=== PATIENT | female | born 1960 | race Caucasian/White ===

== ENCOUNTER 2017-10-19 09:31 | Emergency (ER) | payer BC ==
[~2017-10-19] VITALS: Ht 165.1 cm; Wt 128.1 kg
[2017-10-19 10:18] LABS: BASO % 0 % (0-3); EOS # 0.1 x10^3/uL (0.0-0.7); EOS % 1 % (0-3); HEMATOCRIT 38.9 % (36.0-47.0); LYMPH # 1.1 x10^3/uL (1.0-4.8); LYMPH % 22 % (24-48); MEAN CORPUSCULAR HEMOGLOBIN 28 pg (25-35); MEAN CORPUSCULAR HGB CONC 34 g/dL (31-37); MEAN CORPUSCULAR VOLUME 84 fL (79-100); MONO # 0.4 x10^3/uL (0.0-1.1); MONO % 8 % (0-9); NEUT # 3.5 x10^3uL (1.8-7.7); NEUT % 69 % (31-73); PLATELET COUNT 177 x10^3/uL (140-400); RED BLOOD COUNT 4.64 x10^6/uL (3.50-5.40); RED CELL DISTRIBUTION WIDTH 14.3 % (11.5-14.5); WHITE BLOOD COUNT 5.1 x10^3/uL (4.0-11.0)
[2017-10-19 10:24] LABS: BILIRUBIN,URINE NEG (NEG); CLARITY,URINE CLEAR; COLOR,URINE YELLOW; GLUCOSE,URINE NEG (NEG)
[2017-10-19 10:25] LABS: BACTERIA,URINE 0 /HPF (0-FEW); NITRITE,URINE NEG (NEG); RBC,URINE 0 /HPF (0-2); SQUAMOUS EPITHELIAL CELL,UR FEW /LPF; UROBILINOGEN,URINE 0.2 mg/dL (0.2 mg/dL); WBC,URINE 0 /HPF (0-4)
--- NOTE | 2017-10-19 10:38 | PHYS DOC ---
Past History Past Medical History: Arthritis, Depression Past Surgical History: Other Smoking: Less than 1pk/day Alcohol Use: Occasionally Drug Use: None Adult General Chief Complaint Chief Complaint: CHEST PAIN [facility] HPI 57-year-old female patient brought in by EMS because of chest pain. Patient complaining of intermittent episodes of substernal aching and sharp pain for the last 3 days that usually happens with movement and last about 10 minutes and repeated several times a day. Patient denies shortness of breath, palpitation, dizziness. Patient complaining of some episodes of nausea and subjective fever. Patient states she has had sneezing and runny nose for the last 3 days. Patient rated her pain 3- 4 and denies any pain at arrival to ER. Patient had 324 mg of Aspirin given by EMS. Patient denies history of chest pain. Patient does not have hypertension, dyspnea, diabetes, family history of coronary artery disease. Patient currently smoking less than a pack a day. Review of Systems Review of Systems Constitutional: Denies fever or chills [] Eyes: Denies change in visual acuity, redness, or eye pain [] HENT: Reports nasal congestion, denies sore throat [] Respiratory: Denies cough or shortness of breath [] Cardiovascular: No additional information not addressed in HPI [] GI: Denies abdominal pain, nausea, vomiting, bloody stools or diarrhea [] : Denies dysuria or hematuria [] Musculoskeletal: Denies back pain or joint pain [] Integument: Denies rash or skin lesions [] Neurologic: Denies headache, focal weakness or sensory changes [] Endocrine: Denies polyuria or polydipsia [] All other systems were reviewed and found to be within normal limits, except as documented in this note. Allergies Allergies Allergies Coded Allergies Type Severity Reaction Last Updated Verified No Known Drug Allergies 03/17/14 No Physical Exam Physical Exam Constitutional: Well nourished, no acute distress, non-toxic appearance, anxious. [] HENT: Normocephalic, atraumatic, bilateral external ears normal, oropharynx moist, no oral exudates, nose normal. [] Eyes: PERRLA, EOMI, conjunctiva normal, no discharge. [] Neck: Normal range of motion, no tenderness, supple, no stridor. [] Cardiovascular:Heart rate regular rhythm, no murmur [] Lungs & Thorax: Bilateral breath sounds clear to auscultation, reproducible substernal chest pain Abdomen: Bowel sounds normal, soft, no tenderness, no masses, no pulsatile masses. [] Skin: Warm, dry, no erythema, no rash. [] Back: No tenderness, no CVA tenderness. [] Extremities: No tenderness, no cyanosis, no clubbing, ROM intact, no edema. [] Neurologic: Alert and oriented X 3, normal motor function, normal sensory function, no focal deficits noted. [] Psychologic: Affect normal, judgement normal, anxious EKG EKG [EKG interpreted by me. EKG at 0938 showed normal sinus rhythm at rate of 60, no ST and T-wave abnormality, SD and QT interval normal] Radiology/Procedures Radiology/Procedures Chest x-ray was unremarkable[] Course & Med Decision Making Course & Med Decision Making Pertinent Labs and Imaging studies reviewed. (See chart for details) Evaluation of patient in ER showed 57-year-old female patient with complaining of intermittent episodes of substernal chest pain for the last 3 days with movement and sneezing and cough. Patient had unremarkable physical exam except for chest reproducible pain. X-ray, EKG, labs was unremarkable. Patient was chest pain-free function was in ER. Plan discharge patient home with diagnosis of musculoskeletal chest pain. Patient instructed to quit smoking. [] Dragon Disclaimer Dragon Disclaimer This electronic medical record was generated, in whole or in part, using a voice recognition dictation system. Departure Departure: Impression: Primary Impression: Musculoskeletal chest pain Additional Impressions: Tobacco abuse Tobacco abuse counseling Disposition: HOME, SELF-CARE (At 1135) Condition: STABLE Referrals: NICK ADRIAN MD (PCP) Patient Instructions: Musculoskeletal Pain Additional Instructions: Apply ice on the affected area Follow-up with your primary care physician in 2 or 3 days if not getting better Quit smoking Scripts Naproxen (NAPROSYN) 500 Mg Tablet 1 TAB PO BID, #14 TAB 1 Refill Prov: HARRIS LUA MD 10/19/17 Problem Qualifiers HARRIS LUA MD Oct 19, 2017 10:38
[2017-10-19 10:43] LABS: ALBUMIN 3.5 g/dL (3.4-5.0); ALBUMIN/GLOBULIN RATIO 0.9 (1.0-1.7); CREATININE 0.7 mg/dL (0.6-1.0); GFR 86.2; MAGNESIUM 2.1 mg/dL (1.8-2.4); POTASSIUM 3.9 mmol/L (3.5-5.1); TOTAL BILIRUBIN 0.4 mg/dL (0.2-1.0); TOTAL PROTEIN 7.4 g/dL (6.4-8.2)
--- NOTE | 2017-10-19 10:45 | RAD ---
PA and lateral chest radiographs 10/19/2017 Clinical history: Chest pain. PA and lateral digital radiographs of the chest were obtained. Comparison study is dated 05/02/2013. The cardiac silhouette is normal in size. The thoracic aorta is mildly tortuous. No acute pulmonary infiltrate is seen. No pleural effusion or pneumothorax is seen. Degenerative changes are seen involving the thoracic spine. Impression: No acute pulmonary infiltrate is seen.
[2017-10-19] MEDS ORDERED: NAPR-683 PO (11:37)
--- NOTE | 2017-10-19 12:12 | EKG ---
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
[2017-10-19 12:15] VITALS: BP 129/80
== END 2017-10-19 12:15 | disposition home or self-care (01) ==
LOC: ER 09:31
DX: R07.89 Other chest pain (principal); R50.9 Fever, unspecified; F17.200 Nicotine dependence, unspecified, uncomplicated
CPT/HCPCS: 36415; 71020; 80053; 81001; 82553; 83735; 83880; 84484; 85025; 85610; 93005; 99285-25

== ENCOUNTER 2018-04-12 18:53 | Emergency (ER) | payer SELFPAY ==
[~2018-04-12] VITALS: Ht 165.1 cm; Wt 127.0 kg
[~2018-04-12 18:53] MED LIST: NAPR-683 PO
--- NOTE | 2018-04-12 18:55 | ED.ADGEN ---
Past History Past Medical History: Arthritis, Asthma, Depression Past Surgical History: No Surgical History Smoking: Less than 1pk/day Alcohol Use: Occasionally Drug Use: None Adult General Chief Complaint Chief Complaint ".. I have a bad headache... I took 600 ibuprofen... I ve had it now for over 15 minutes..." HPI HPI Patient is a 58 year old female resident of [facility], who presents with above hx and complaints of headache. Patient likely has headaches. Use ear control of Tylenol or ibuprofen. Patient states this headache felt worse than previous headaches. No history of trauma. No history of travel. No history of immunosuppression. Patient lives in assisted living. Patient normally follows with Dr. Ochoa. Poorly up-to-date with vaccinations. DTRs +2 patella and brachial. Patient is ambulatory as somewhat shuffled gait. Patient is morbidly obese and needs assistance in getting in and out of bed. Patient does lisp with speech, but this is normal for her. Brother at bed side states her current mentation and presentation is at her baseline. Patient does smoke approximately 1 pack per day. Review of Systems Review of Systems Constitutional: Denies fever or chills [] Eyes: Denies change in visual acuity, redness, or eye pain [] HENT: Denies nasal congestion or sore throat [] Respiratory: Denies cough or shortness of breath [] Cardiovascular: No additional information not addressed in HPI [] GI: Denies abdominal pain, nausea, vomiting, bloody stools or diarrhea [] : Denies dysuria or hematuria [] Musculoskeletal: Denies back pain or joint pain [] Integument: Denies rash or skin lesions [] Neurologic: Complains headache. Denies, focal weakness or sensory changes [] Endocrine: Denies polyuria or polydipsia [] All other systems were reviewed and found to be within normal limits, except as documented in this note. Family History Family History Noncontributory Current Medications Current Medications Current Medications Medications (Trade) Dose Ordered Sig/Alexander Start Time Stop Time Status Last Admin Dose Admin Acetaminophen (Tylenol) 1,000 mg 1X ONCE 04/12/18 19:00 04/12/18 19:04 DC Diphenhydramine HCl (Benadryl) 50 mg 1X ONCE 04/12/18 19:00 04/12/18 19:04 DC Ketorolac Tromethamine (Toradol) 60 mg 1X ONCE 04/12/18 21:45 04/12/18 21:46 DC 04/12/18 23:32 60 MG Promethazine HCl (Phenergan Im) 25 mg 1X ONCE 04/12/18 19:00 04/12/18 19:04 DC Sumatriptan Succinate (Imitrex) 6 mg 1X ONCE 04/12/18 21:15 04/12/18 21:20 DC 04/12/18 23:33 6 MG Allergies Allergies Allergies Coded Allergies Type Severity Reaction Last Updated Verified No Known Drug Allergies 03/17/14 No Physical Exam Physical Exam Constitutional: no acute distress, non-toxic appearance. [] HENT: Normocephalic, atraumatic, bilateral external ears normal, oropharynx moist, no oral exudates, nose normal. [] Eyes: PERRLA, EOMI, conjunctiva normal, no discharge. [] Neck: Normal range of motion, no tenderness, supple, no stridor. [] Cardiovascular:Heart rate regular rhythm, no murmur [] Lungs & Thorax: Bilateral breath sounds clear to auscultation [] Abdomen: Bowel sounds normal, soft, no tenderness, no masses, no pulsatile masses. [] Morbidly obese Skin: Warm, dry, no erythema, no rash. [] Back: No tenderness, no CVA tenderness. [] Extremities: No tenderness, no cyanosis, no clubbing, ROM intact, ankle edema. [ ] Neurologic: Alert and oriented X 3, normal motor function, normal sensory function, no focal deficits noted. []DTRs +2 patella and brachial. Enterer equal. No drift but does have giveaway weakness. Patient is right-hand dominant. Distal vibratory 128 intact. Psychologic: Affect anxious, judgement appears to have limited insight, mood normal. [] Current Patient Data Lab Results Laboratory Tests Test 04/12/18 19:10 04/12/18 20:18 Urine Collection Type Unknown Urine Color Yellow Urine Clarity Hazy Urine pH 7.0 Urine Specific Byron 1.020 Urine Protein Neg (NEG-TRACE) Urine Glucose (UA) Neg mg/dL (NEG) Urine Ketones (Stick) Trace mg/dL (NEG) Urine Blood Neg (NEG) Urine Nitrite Neg (NEG) Urine Bilirubin Neg (NEG) Urine Urobilinogen Dipstick 0.2 mg/dL (0.2 mg/dL) Urine Leukocyte Esterase Neg (NEG) Urine RBC 1-2 /HPF (0-2) Urine WBC 1-4 /HPF (0-4) Urine Squamous Epithelial Cells Many /LPF Urine Bacteria Few /HPF (0-FEW) Urine Opiates Screen Neg (NEG) Urine Methadone Screen Neg (NEG) Urine Barbiturates Neg (NEG) Urine Phencyclidine Screen Neg (NEG) Urine Amphetamine/Methamphetamine Neg (NEG) Urine Benzodiazepines Screen Neg (NEG) Urine Cocaine Screen Neg (NEG) Urine Cannabinoids Screen Neg (NEG) Urine Ethyl Alcohol Neg (NEG) White Blood Count 4.6 x10^3/uL (4.0-11.0) Red Blood Count 4.56 x10^6/uL (3.50-5.40) Hemoglobin 12.8 g/dL (12.0-15.5) Hematocrit 38.6 % (36.0-47.0) Mean Corpuscular Volume 85 fL (79-100) Mean Corpuscular Hemoglobin 28 pg (25-35) Mean Corpuscular Hemoglobin Concent 33 g/dL (31-37) Red Cell Distribution Width 14.3 % (11.5-14.5) Platelet Count 186 x10^3/uL (140-400) Neutrophils (%) (Auto) 57 % (31-73) Lymphocytes (%) (Auto) 32 % (24-48) Monocytes (%) (Auto) 7 % (0-9) Eosinophils (%) (Auto) 3 % (0-3) Basophils (%) (Auto) 1 % (0-3) Neutrophils # (Auto) 2.6 x10^3uL (1.8-7.7) Lymphocytes # (Auto) 1.5 x10^3/uL (1.0-4.8) Monocytes # (Auto) 0.3 x10^3/uL (0.0-1.1) Eosinophils # (Auto) 0.1 x10^3/uL (0.0-0.7) Basophils # (Auto) 0.0 x10^3/uL (0.0-0.2) Prothrombin Time 9.7 SEC (9.4-11.4) Prothrombin Time INR 0.9 (0.9-1.1) PTT 34 SEC (23-33) H Sodium Level 140 mmol/L (136-145) Potassium Level 3.9 mmol/L (3.5-5.1) Chloride Level 104 mmol/L (98-107) Carbon Dioxide Level 30 mmol/L (21-32) Anion Gap 6 (6-14) Blood Urea Nitrogen 19 mg/dL (7-20) Creatinine 0.8 mg/dL (0.6-1.0) Estimated GFR (Cockcroft-Gault) 73.7 Glucose Level 93 mg/dL (70-99) Calcium Level 8.6 mg/dL (8.5-10.1) Magnesium Level 2.0 mg/dL (1.8-2.4) Troponin I Quantitative < 0.017 ng/mL (0-0.055) EKG EKG My interpretation EKG shows a sinus rhythm at 70 bpm. With no acute morphology.[ ] Radiology/Procedures Radiology/Procedures My interpretation CT of head shows no shift, mass, edema, bleed, or fracture. Does have increased generalized atrophy[] Course & Med Decision Making Course & Med Decision Making Pertinent Labs and Imaging studies reviewed. (See chart for details) Patient declines spinal tap. Does exhibit UCAR capacity. Patient encouraged follow-up with Dr. Sanon. Patient encourage return if any concerns. Patient take Tylenol and ibuprofen for discomfort. Consider follow -up with neurology persistent recurrent migraine type headaches. [] Final Impression Final Impression 1. Headache[]- Migraine 2. Morbid obesity 3. Tobacco Abuse Dragon Disclaimer Dragon Disclaimer This electronic medical record was generated, in whole or in part, using a voice recognition dictation system. LOU MARIE MD Apr 12, 2018 18:55
[2018-04-12] MEDS ORDERED: diphenhydrAMINE 50 MG/ML VIAL IM ONE (19:00)
[2018-04-12] MEDS ORDERED: PROMETHAZINE IM 25 MG/ML VIAL IM ONE (19:00)
[2018-04-12] MEDS ORDERED: ACETAMINOPHEN 500 MG TABLET PO ONE (19:00)
--- NOTE | 2018-04-12 19:15 | EKG ---
[address] [address] Test Date: 2018-04-12 Test Time: 19:09:49 Pat Name: DEYANIRA COOLEY Department: Room: Gender: F [employer]: MILDRED : 1960 Requested By: LOU MARIE Order Number: [id number] Reading MD: Carlos Siddiqi Measurements Intervals [place] Rate: 70 P: 0 [place]: 170 QRS: 24 QRSD: 92 T: 59 QT: 412 QTc: 448 Interpretive Statements SINUS ARRHYTHMIA NO SPECIFIC ECG ABNORMALITIES Electronically Signed On 04-19-2018 12:46:40 CDT by Carlos Siddiqi
--- NOTE | 2018-04-12 19:54 | RAD ---
Indication: Severe headache Technique: Noncontrast CT head was obtained. Comparison is from November 17, 2011. One or more of the following individualized dose reduction techniques were utilized for this examination: 1. Automated exposure control 2. Adjustment of the mA and/or kV according to patient size 3. Use of iterative reconstruction technique Findings: Mild symmetric prominence of the ventricles and sulci is within normal limits for age. There is no acute intracranial hemorrhage or extra-axial fluid collection. There is no mass effect or midline shift. Del Cid-white differentiation is preserved. There is no depressed skull fracture. The included paranasal sinuses and mastoid air cells are clear. IMPRESSION: 1. No acute intracranial findings. 2. Brain parenchymal volume loss. Electronically signed by: William Vargas MD (04/12/2018 7:50 PM) [facility]
[2018-04-12 20:18] LABS: AMPHETAMINE/METHAMPHETAMINE NEG (NEG); BARBITURATES NEG (NEG); BENZODIAZEPINES NEG (NEG); CANNABINOIDS NEG (NEG); COCAINE NEG (NEG); METHADONE NEG (NEG); OPIATES NEG (NEG); PHENCYCLIDINE NEG (NEG)
[2018-04-12 20:32] LABS: BILIRUBIN,URINE NEG (NEG); CLARITY,URINE HAZY; COLOR,URINE YELLOW; GLUCOSE,URINE NEG (NEG); NITRITE,URINE NEG (NEG); UROBILINOGEN,URINE 0.2 mg/dL (0.2 mg/dL)
[2018-04-12 20:33] LABS: BACTERIA,URINE FEW /HPF (0-FEW); SQUAMOUS EPITHELIAL CELL,UR MANY /LPF
[2018-04-12 20:45] LABS: BASO % 1 % (0-3); EOS # 0.1 x10^3/uL (0.0-0.7); EOS % 3 % (0-3); HEMATOCRIT 38.6 % (36.0-47.0); HEMOGLOBIN 12.8 g/dL (12.0-15.5); LYMPH # 1.5 x10^3/uL (1.0-4.8); LYMPH % 32 % (24-48); MEAN CORPUSCULAR HEMOGLOBIN 28 pg (25-35); MEAN CORPUSCULAR HGB CONC 33 g/dL (31-37); MEAN CORPUSCULAR VOLUME 85 fL (79-100); MONO # 0.3 x10^3/uL (0.0-1.1); MONO % 7 % (0-9); NEUT # 2.6 x10^3uL (1.8-7.7); NEUT % 57 % (31-73); PLATELET COUNT 186 x10^3/uL (140-400); RED BLOOD COUNT 4.56 x10^6/uL (3.50-5.40); RED CELL DISTRIBUTION WIDTH 14.3 % (11.5-14.5); WHITE BLOOD COUNT 4.6 x10^3/uL (4.0-11.0)
[2018-04-12 20:54] LABS: CALCIUM 8.6 mg/dL (8.5-10.1); CREATININE 0.8 mg/dL (0.6-1.0); GFR 73.7; POTASSIUM 3.9 mmol/L (3.5-5.1)
[2018-04-12] MEDS ORDERED: SUMAtriptan SUCC 6 MG/0.5 ML VIAL SQ ONE (21:15)
[2018-04-12] MEDS ORDERED: KETOROLAC 60 MG/2 ML VIAL. IM ONE (21:45)
--- NOTE | 2018-04-13 08:16 | RAD ---
PROCEDURE: PORTABLE CHEST 1V CLINICAL INDICATION: SHORTNESS OF BREATH COMPARISON: 10/19/2017 FINDINGS: No pneumothorax identified. Cardiac and mediastinal contours unremarkable. No pulmonary consolidation or acute airspace disease. No acute osseous abnormalities identified. IMPRESSION: No pulmonary consolidation or acute airspace disease. Electronically signed by: Gregg Ware DO (04/13/2018 8:13 AM) [facility]
[2018-04-14 04:58] VITALS: BP 133/78
== END 2018-04-12 23:50 | disposition home or self-care (01) ==
LOC: ER 18:53
DX: G43.909 Migraine, unspecified, not intractable, without status migrainosus (principal); E66.01 Morbid (severe) obesity due to excess calories; J45.909 Unspecified asthma, uncomplicated; M19.90 Unspecified osteoarthritis, unspecified site; F17.210 Nicotine dependence, cigarettes, uncomplicated; Z68.42 Body mass index [BMI] 45.0-49.9, adult
CPT/HCPCS: 36415; 70450; 71045; 80048; 80307; 81001; 83735; 84484; 85025; 85610; 85730; 93005; 96372; 99285; J1200; J1885; J2550; J3030; G0479

== ENCOUNTER 2018-06-09 14:00 | Emergency (ER) | payer SELFPAY ==
[~2018-06-09] VITALS: Ht 165.1 cm; Wt 136.1 kg
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
[2018-06-09 15:58] VITALS: BP 139/78
== END 2018-06-09 16:05 | disposition home or self-care (01) ==
LOC: ER 14:00
DX: S09.90XA Unspecified injury of head, initial encounter (principal); S20.211A Contusion of right front wall of thorax, initial encounter; M19.90 Unspecified osteoarthritis, unspecified site; F17.200 Nicotine dependence, unspecified, uncomplicated; V49.59XA Passenger injured in collision with other motor vehicles in traffic accident, initial encounter; Y93.89 Activity, other specified; Y92.488 Other paved roadways as the place of occurrence of the external cause; Y99.8 Other external cause status
CPT/HCPCS: 71101; 99284

== ENCOUNTER 2018-06-10 10:09 | Emergency (ER) | payer SELFPAY ==
[~2018-06-10] VITALS: Ht 165.1 cm; Wt 128.1 kg
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
[2018-06-10 12:57] VITALS: BP 130/71
== END 2018-06-10 12:57 | disposition home or self-care (01) ==
LOC: ER 10:09
DX: R20.0 Anesthesia of skin (principal); J45.909 Unspecified asthma, uncomplicated; M19.90 Unspecified osteoarthritis, unspecified site; F17.200 Nicotine dependence, unspecified, uncomplicated; V89.2XXD Person injured in unspecified motor-vehicle accident, traffic, subsequent encounter
CPT/HCPCS: 73130; 99284

== ENCOUNTER → 2018-06-25 | Outpatient (CLI) | payer OTHER ==
[2018-06-10 12:57] VITALS: BP 130/71
--- NOTE | 2018-06-28 08:49 | RAD ---
DATE: 06/25/2018 EXAM: DIGITAL SCREEN BILAT W/CAD HISTORY: Routine screening COMPARISON: None available This study was interpreted with the benefit of Computerized Aided Detection (CAD). The breast parenchyma shows scattered fibroglandular densities. Breast parenchyma level B. FINDINGS: There are benign-appearing lymph node type densities projected over the posterolateral aspects of both breasts. There is additional less well-defined opacity in the posterolateral aspect of the left breast with several associated microcalcifications. There are couple of other scattered benign type calcifications in both breasts. IMPRESSION: Small left lateral breast nodule with microcalcifications. Diagnostic mammography to include spot compression CC, straight mediolateral and probably tomosynthesis imaging is suggested, probably followed by left breast ultrasound. BI-RADS CATEGORY: 0 INCOMPLETE: NEEDS ADDITIONAL IMAGING EVALUATION AND/OR PRIOR MAMMOGRAMS FOR COMPARISON. RECOMMENDED FOLLOW-UP: ADD ADDITIONAL IMAGING PQRS compliance statement: Patient information was entered into a reminder system with a target due date for the next mammogram. Mammography is a sensitive method for finding small breast cancers, but it does not detect them all and is not a substitute for careful clinical examination. A negative mammogram does not negate a clinically suspicious finding and should not result in delay in biopsying a clinically suspicious abnormality. "Our facility is accredited by the [employer] Mammography [employer]."
== END | disposition home or self-care (01) ==
LOC: MAMMO 14:58
DX: Z12.31 Encounter for screening mammogram for malignant neoplasm of breast (principal); J45.909 Unspecified asthma, uncomplicated; G43.909 Migraine, unspecified, not intractable, without status migrainosus
CPT/HCPCS: 77067

== ENCOUNTER 2018-07-13 09:26 | Emergency (ER) | payer SELFPAY ==
[~2018-07-13] VITALS: Ht 165.1 cm; Wt 128.1 kg
[2018-07-13] MEDS ORDERED: PRED20TA PO (10:16)
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
[2018-07-13] MEDS ORDERED: DEXAMETHASONE SOD PHOS 10 MG/ML VIAL IV ONE (10:30)
[2018-07-13 10:40] VITALS: BP 138/77
[2018-07-13] MEDS ORDERED: DEXAMETHASONE SOD PHOS 10 MG/ML VIAL IM ONE (10:45)
== END 2018-07-13 10:40 | disposition home or self-care (01) ==
LOC: ER 09:26
DX: G56.91 Unspecified mononeuropathy of right upper limb (principal); M19.90 Unspecified osteoarthritis, unspecified site; J45.909 Unspecified asthma, uncomplicated; F17.200 Nicotine dependence, unspecified, uncomplicated
CPT/HCPCS: 96372; 99283; J1100

== ENCOUNTER 2018-09-07 07:44 | Emergency (ER) | payer SELFPAY ==
[~2018-09-07] VITALS: Ht 165.1 cm; Wt 136.5 kg
[~2018-09-07 07:44] MED LIST changes: +PRED20TA PO
[2018-09-07] MEDS ORDERED: DIPHTH,PERTUSS(ACELL),TET TOX 0.5 ML DISP.SYRIN. VAX IM ONE (08:00)
[2018-09-07 08:20] LABS: HEMATOCRIT 39.2 % (36.0-47.0); HEMOGLOBIN 12.9 g/dL (12.0-15.5); RED BLOOD COUNT 4.61 x10^6/uL (3.50-5.40); RED CELL DISTRIBUTION WIDTH 13.9 % (11.5-14.5); WHITE BLOOD COUNT 3.9 x10^3/uL (4.0-11.0)
[2018-09-07 08:34] LABS: ALBUMIN 3.2 g/dL (3.4-5.0); ALBUMIN/GLOBULIN RATIO 0.9 (1.0-1.7); CALCIUM 8.5 mg/dL (8.5-10.1); CREATININE 0.7 mg/dL (0.6-1.0); GFR 85.9; POTASSIUM 3.8 mmol/L (3.5-5.1); TOTAL BILIRUBIN 0.4 mg/dL (0.2-1.0); TOTAL PROTEIN 6.7 g/dL (6.4-8.2)
[2018-09-07] MEDS ORDERED: IOHEXOL 300 MG/ML 75 ML VIAL. IV ONE (08:45)
--- NOTE | 2018-09-07 09:22 | RAD ---
CT scan of the head without contrast 09/07/2018 Clinical History: Fall striking head on curb this morning. Technique: Unenhanced, contiguous, 5 mm axial sections were obtained through the head. One or more of the following individualized dose reduction techniques were utilized for this study: 1. Automated exposure control. 2. Adjustment of the mA and/or kV according to patient size. 3. Use of iterative reconstruction technique. Findings: Comparison study is dated 04/12/2018. There is mild generalized parenchymal atrophy. No acute parenchymal abnormality is seen. No extra-axial fluid collection is noted. No skull fracture is seen. Soft tissue swelling is seen involving the left frontal scalp. Impression: No acute intracranial abnormality is seen. CT scan of the cervical spine without contrast 09/07/2018 Clinical history: Fall with neck injury. Technique: Unenhanced, contiguous, 0.625 mm axial sections were obtained through the cervical spine. Axial, coronal and sagittal reconstructed images were obtained. One or more of the following individualized dose reduction techniques were utilized for this study: 1. Automated exposure control. 2. Adjustment of the mA and/or kV according to patient size. 3. Use of iterative reconstruction technique. Findings: Sagittal and coronal reconstructed images demonstrate mild lateral curvature of the cervical spine, convex to the left. There is straightening of the normal cervical lordosis. Degenerative changes consisting of disc space narrowing, vertebral endplate sclerosis and minimal to mild anterior and posterior vertebral body osteophyte formation are seen at the C5-6 and C6-7 disc space is prominently. A nondisplaced defect is seen involving the right aspect of the posterior arch of C1 which is well-corticated and felt to most likely represent a congenital variation. No acute fracture or subluxation cervical vertebrae is seen. Degenerative changes are seen involving the uncovertebral and facet joints throughout the mid and lower cervical disc spaces. Impression: No acute fracture or subluxation of the cervical vertebra is identified. Electronically signed by: Eric Felix MD (09/07/2018 9:19 AM) [id number]
--- NOTE | 2018-09-07 09:47 | RAD ---
CT scan of the chest, abdomen and pelvis with contrast 09/07/2018 CLINICAL HISTORY: Patient fell onto pavement from curb striking her chest this morning with chest, abdominal and pelvic pain. TECHNIQUE: After the intravenous administration of 75 cc of Omnipaque 300, contiguous, 3 mm axial sections were obtained through the chest, abdomen and pelvis. One or more of the following individualized dose reduction techniques were utilized for this study: 1. Automated exposure control. 2. Adjustment of the mA and/or kV according to patient size. 3. Use of iterative reconstruction technique. FINDINGS: Comparison is made to a CT scan of the abdomen and pelvis dated 05/30/2013. No mediastinal hematoma is seen. The thoracic aorta is mildly tortuous but tapers normally. There is mild to moderate cardiomegaly. Dependent subsegmental atelectasis is seen involving both lungs. No acute pulmonary infiltrate is seen. No pleural effusion or pneumothorax is noted. The liver, spleen, pancreas, adrenal glands and right kidney are within normal limits. A 2 cm rounded low-attenuation lesion is seen involving the midpole of the left kidney which likely represents a cyst. The gallbladder is well-distended. Oval-shaped increased attenuation material is seen within the gallbladder which is felt to most likely represent sludge. The abdominal aorta tapers normally. Mild scattered atherosclerotic calcification abdominal aorta is seen. No free fluid or free air is within the abdomen. There is no evidence of bowel obstruction. The appendix is well-visualized and is within normal limits. Of the Images through the pelvis demonstrate the urinary bladder distended with urine. Calcifications are seen within the pelvis consistent with phleboliths. No free fluid is seen. No pelvic hematoma is noted. Scattered diverticula are seen involving the sigmoid colon. No inflammatory changes are seen in the adjacent fat. Mild S-shaped curvature of the thoracolumbar spine is seen. Degenerative changes are seen involving the thoracic and throughout the lumbar spine both hips. The osseous structures are grossly intact. IMPRESSION: No acute abnormality is seen. Electronically signed by: Eric Felix MD (09/07/2018 9:44 AM) [id number]
[2018-09-07] MEDS ORDERED: HYDR-971 PO (10:04)
[2018-09-07] MEDS ORDERED: IBUP800T19 PO (10:04)
--- NOTE | 2018-09-07 10:05 | PHYS DOC ---
Past History Past Medical History: Arthritis, Asthma, Other Past Surgical History: Smoking: Less than 1pk/day Alcohol Use: Rarely Drug Use: None Adult General Chief Complaint Chief Complaint: MECHANICAL FALL HPI HPI Patient is a 58 year old female who brought in by EMS because of a fall. Patient states she was walking outside and hit the curb and fell on concrete area. Patient denies loss of consciousness and complaining of pain in her face and right hand as a severe pain and rated her pain 8/10. She denies focal neuro deficit, nausea and vomiting, fever and chills, blurred lesion, chest pain. Patient is not up-to-date with tetanus immunization. Review of Systems Review of Systems Constitutional: Denies fever or chills [] Eyes: Denies change in visual acuity, redness, or eye pain [] HENT: Denies nasal congestion or sore throat [] Respiratory: Denies cough or shortness of breath [] Cardiovascular: No additional information not addressed in HPI [] GI: Reports abdominal pain, denies nausea, vomiting, bloody stools or diarrhea [ ] : Denies dysuria or hematuria [] Musculoskeletal: Denies back pain or joint pain [] Integument: Denies rash or skin lesions [] Neurologic: Reports headache, denies focal weakness or sensory changes [] Endocrine: Denies polyuria or polydipsia [] All other systems were reviewed and found to be within normal limits, except as documented in this note. Current Medications Current Medications Current Medications Medications (Trade) Dose Ordered Sig/[facility] Start Time Stop Time Status Last Admin Dose Admin Diphtheria/ Tetanus/[facility] Pertussis (Boostrix) 0.5 ml ONCE ONCE 09/07/18 08:00 09/07/18 08:23 DC 09/07/18 08:16 0.5 ML Fentanyl Citrate (Fentanyl 2ml Vial) 50 mcg 1X ONCE 09/07/18 08:45 09/07/18 08:46 DC 09/07/18 08:22 50 MCG Iohexol (Omnipaque 300 Mg/ml) 75 ml 1X ONCE 09/07/18 08:45 09/07/18 08:46 DC Allergies Allergies Allergies Coded Allergies Type Severity Reaction Last Updated Verified No Known Drug Allergies 03/17/14 No Physical Exam Physical Exam Constitutional: Well developed, well nourished, moderate distress, non-toxic appearance. [] HENT: Normocephalic, left frontal scalp contusion, bilateral external ears normal, oropharynx moist, no oral exudates, nose normal. [] Eyes: PERRLA, EOMI, conjunctiva normal, no discharge. [] Neck: Immobilized with c-collar at arrival to ER Cardiovascular:Heart rate regular rhythm, no murmur [] Lungs & Thorax: Bilateral breath sounds clear to auscultation [] Abdomen: 5 x 10 cm contusion in the left side of abdomen with tenderness, bowel sounds normal, soft, no masses, no pulsatile masses. [] Skin: Warm, dry, no erythema, no rash. [] Back: No tenderness, no CVA tenderness. [] Extremities: No tenderness, no cyanosis, no clubbing, ROM intact, right fourth finger abrasion, no edema. [] Neurologic: Alert and oriented X 3, normal motor function, normal sensory function, no focal deficits noted. [] Psychologic: Affect normal, judgement normal, mood normal. [] Current Patient Data Vital Signs Vital Signs Date Time Temp Pulse Resp B/P (MAP) Pulse Ox O2 Delivery O2 Flow Rate FiO2 09/07/18 08:29 97.8 62 18 97 Room Air Lab Results Laboratory Tests Test 09/07/18 08:05 White Blood Count 3.9 x10^3/uL (4.0-11.0) L Red Blood Count 4.61 x10^6/uL (3.50-5.40) Hemoglobin 12.9 g/dL (12.0-15.5) Hematocrit 39.2 % (36.0-47.0) Mean Corpuscular Volume 85 fL (79-100) Mean Corpuscular Hemoglobin 28 pg (25-35) Mean Corpuscular Hemoglobin Concent 33 g/dL (31-37) Red Cell Distribution Width 13.9 % (11.5-14.5) Platelet Count 164 x10^3/uL (140-400) Sodium Level 140 mmol/L (136-145) Potassium Level 3.8 mmol/L (3.5-5.1) Chloride Level 104 mmol/L (98-107) Carbon Dioxide Level 26 mmol/L (21-32) Anion Gap 10 (6-14) Blood Urea Nitrogen 13 mg/dL (7-20) Creatinine 0.7 mg/dL (0.6-1.0) Estimated GFR (Cockcroft-Gault) 85.9 BUN/Creatinine Ratio 19 (6-20) Glucose Level 107 mg/dL (70-99) H Calcium Level 8.5 mg/dL (8.5-10.1) Total Bilirubin 0.4 mg/dL (0.2-1.0) Aspartate Amino Transferase (AST) 15 U/L (15-37) Alanine Aminotransferase (ALT) 19 U/L (14-59) Alkaline Phosphatase 115 U/L (46-116) Total Protein 6.7 g/dL (6.4-8.2) Albumin 3.2 g/dL (3.4-5.0) L Albumin/Globulin Ratio 0.9 (1.0-1.7) L EKG EKG [] Radiology/Procedures Radiology/[place] [address] IMAGING REPORT Signed PATIENT: DEYANIRA COOLEY ACCOUNT: [id number] : 1960 LOCATION: ER AGE: 58 SEX: F EXAM STATUS: REG ER ORD. PHYSICIAN: HARRIS LUA MD REASON: fall PROCEDURE: CT CHEST ABD PELVIS W/CONTRAST CT scan of the chest, abdomen and pelvis with contrast 09/07/2018 CLINICAL HISTORY: Patient fell onto pavement from curb striking her chest this morning with chest, abdominal and pelvic pain. TECHNIQUE: After the intravenous administration of 75 cc of Omnipaque 300, contiguous, 3 mm axial sections were obtained through the chest, abdomen and pelvis. One or more of the following individualized dose reduction techniques were utilized for this study: 1. Automated exposure control. 2. Adjustment of the mA and/or kV according to patient size. 3. Use of iterative reconstruction technique. FINDINGS: Comparison is made to a CT scan of the abdomen and pelvis dated 05/30/2013. No mediastinal hematoma is seen. The thoracic aorta is mildly tortuous but tapers normally. There is mild to moderate cardiomegaly. Dependent subsegmental atelectasis is seen involving both lungs. No acute pulmonary infiltrate is seen. No pleural effusion or pneumothorax is noted. The liver, spleen, pancreas, adrenal glands and right kidney are within normal limits. A 2 cm rounded low-attenuation lesion is seen involving the midpole of the left kidney which likely represents a cyst. The gallbladder is well-distended. Oval-shaped increased attenuation material is seen within the gallbladder which is felt to most likely represent sludge. The abdominal aorta tapers normally. Mild scattered atherosclerotic calcification abdominal aorta is seen. No free fluid or free air is within the abdomen. There is no evidence of bowel obstruction. The appendix is well-visualized and is within normal limits. Of the Images through the pelvis demonstrate the urinary bladder distended with urine. Calcifications are seen within the pelvis consistent with phleboliths. No free fluid is seen. No pelvic hematoma is noted. Scattered diverticula are seen involving the sigmoid colon. No inflammatory changes are seen in the adjacent fat. Mild S-shaped curvature of the thoracolumbar spine is seen. Degenerative changes are seen involving the thoracic and throughout the lumbar spine both hips. The osseous structures are grossly intact. IMPRESSION: No acute abnormality is seen. Electronically signed by: Eric Santos MD (09/07/2018 9:44 AM) [id number] DICTATED AND SIGNED BY: ERIC SANTOS MD DATE: 09/07/18923 CC: HARRIS LUA MD; PCP,NO ~ [place] [address] IMAGING REPORT Signed PATIENT: DEYANIRA COOLEY ACCOUNT: [id number] : 1960 LOCATION: ER AGE: 58 SEX: F EXAM STATUS: REG ER ORD. PHYSICIAN: HARRIS LUA MD REASON: fall PROCEDURE: CT HEAD AND CERVICAL SPINE WO CT scan of the head without contrast 09/07/2018 Clinical History: Fall striking head on curb this morning. Technique: Unenhanced, contiguous, 5 mm axial sections were obtained through the head. One or more of the following individualized dose reduction techniques were utilized for this study: 1. Automated exposure control. 2. Adjustment of the mA and/or kV according to patient size. 3. Use of iterative reconstruction technique. Findings: Comparison study is dated 04/12/2018. There is mild generalized parenchymal atrophy. No acute parenchymal abnormality is seen. No extra-axial fluid collection is noted. No skull fracture is seen. Soft tissue swelling is seen involving the left frontal scalp. Impression: No acute intracranial abnormality is seen. CT scan of the cervical spine without contrast 09/07/2018 Clinical history: Fall with neck injury. Technique: Unenhanced, contiguous, 0.625 mm axial sections were obtained through the cervical spine. Axial, coronal and sagittal reconstructed images were obtained. One or more of the following individualized dose reduction techniques were utilized for this study: 1. Automated exposure control. 2. Adjustment of the mA and/or kV according to patient size. 3. Use of iterative reconstruction technique. Findings: Sagittal and coronal reconstructed images demonstrate mild lateral curvature of the cervical spine, convex to the left. There is straightening of the normal cervical lordosis. Degenerative changes consisting of disc space narrowing, vertebral endplate sclerosis and minimal to mild anterior and posterior vertebral body osteophyte formation are seen at the C5-6 and C6-7 disc space is prominently. A nondisplaced defect is seen involving the right aspect of the posterior arch of C1 which is well-corticated and felt to most likely represent a congenital variation. No acute fracture or subluxation cervical vertebrae is seen. Degenerative changes are seen involving the uncovertebral and facet joints throughout the mid and lower cervical disc spaces. Impression: No acute fracture or subluxation of the cervical vertebra is identified. Electronically signed by: Eric Santos MD (09/07/2018 9:19 AM) [facility] DICTATED AND SIGNED BY: ERIC SANTOS MD DATE: 09/07/18 0909 CC: HARRIS LUA MD; PCP,NO ~ Course & Med Decision Making Course & Med Decision Making Pertinent Labs and Imaging studies reviewed. (See chart for details) Evaluation of patient in ER showed 58-year-old female patient with a fall and injury to her head and abdominal wall. Patient had unremarkable CT head, cervical spine, chest and abdomen and pelvis. Patient treated with fentanyl and felt better. Patient ambulated without problem. Plan discharge patient home with diagnose of fall and head injury and contusion of abdominal wall. Dragon Disclaimer Dragon Disclaimer This electronic medical record was generated, in whole or in part, using a voice recognition dictation system. Departure Departure: Impression: Primary Impression: Head injury Additional Impressions: Abdominal wall contusion Finger abrasion Fall at home Disposition: HOME, SELF-CARE (at 1001) Condition: IMPROVED Referrals: PCP,NO (PCP) Patient Instructions: Abrasions, Contusion, Head Injury, Adult Additional Instructions: Drink plenty of liquids Follow-up with your primary care physician in 3-5 days Return to ER if not getting better Apply ice on the affected area Scripts Hydrocodone Bit/Acetaminophen (NORCO 5-325 TABLET) 1 Each Tablet 1 TAB PO PRN Q6HRS PRN for PAIN, #14 TAB 0 Refills Prov: HARRIS LUA MD 09/07/18 Ibuprofen (IBUPROFEN) 800 Mg Tablet 1 TAB PO TID for pain, #30 TAB Prov: HARRIS LUA MD 09/07/18 Problem Qualifiers HARRIS LUA MD Sep 07, 2018 10:05
[2018-09-07 10:39] VITALS: BP 120/64
== END 2018-09-07 10:35 | disposition home or self-care (01) ==
LOC: ER 07:44
DX: S00.03XA Contusion of scalp, initial encounter (principal); S30.1XXA Contusion of abdominal wall, initial encounter; S60.414A Abrasion of right ring finger, initial encounter; M19.90 Unspecified osteoarthritis, unspecified site; J45.909 Unspecified asthma, uncomplicated; F17.200 Nicotine dependence, unspecified, uncomplicated; W18.09XA Striking against other object with subsequent fall, initial encounter; Y93.01 Activity, walking, marching and hiking; Y92.098 Other place in other non-institutional residence as the place of occurrence of the external cause; Y99.8 Other external cause status
CPT/HCPCS: 36415; 70450; 71260; 72125; 74177; 80053; 85027; 90471; 90715; 96374; 99285; J3010

== ENCOUNTER → 2018-09-08 | Outpatient (CLI) | payer OTHER ==
[2018-09-07 10:39] VITALS: BP 120/64
[~2018-09-08] MED LIST changes: +ALBU2.5V5 NEB; +AMOX500C PO; +BENZ100C PO; +HYDR-3165 PO; +IBUP800T19 PO; +PRED50TA PO
--- NOTE | 2018-09-08 16:07 | RAD ---
DATE: 09/08/2018 EXAM: DIGITAL DIAGNOSTIC LT, BREAST LEFT HISTORY: Abnormal screening study COMPARISON: 06/25/2018 This study was interpreted with the benefit of Computerized Aided Detection (CAD). Breast Density: SCATTERED The breast parenchyma shows scattered fibroglandular densities. Breast parenchyma level B. FINDINGS: Additional views of left breast were obtained including CC and MLO tomosynthesis imaging. They confirm the presence of a lobulated nodule measuring approximately 13 mm in greatest diameter at the 2:00 location in the left breast located approximately 9-10 cm from the nipple. It contains several slightly pleomorphic microcalcifications. There are a few other scattered benign type calcifications in the left breast. There is a smooth posterolateral left breast nodule which is probably an intramammary lymph node. Right breast ultrasound, 09/08/2018: A targeted ultrasound exam of the upper outer left breast was performed. A small benign-appearing lymph node type density is seen far laterally. This presumably corresponds to the probable lymph node seen on the mammograms. More medially in the upper outer quadrant at the 1:30 location there is a vague slightly hypoechoic structure which is difficult to separate from the adjacent heterogeneous fibroglandular tissues. Some of the images versus suggestion of shadowing. No other abnormality is seen in this region. IMPRESSION: Small nodule containing calcifications in the upper outer left breast, best demonstrated on the mammograms. Stereotactic biopsy is suggested for further evaluation. Note: The radiology technologist notified the patient of these findings at the time of the exam. The patient is aware of our recommendation for biopsy and will follow-up with the ordering provider. BI-RADS CATEGORY: 4 SUSPICIOUS ABNORMALITY- BIOPSY SHOULD BE CONSIDERED RECOMMENDED FOLLOW-UP: BIO BIOPSY RECOMMENDED PQRS compliance statement: Patient information was entered into a reminder system with a target due date for the next mammogram. Mammography is a sensitive method for finding small breast cancers, but it does not detect them all and is not a substitute for careful clinical examination. A negative mammogram does not negate a clinically suspicious finding and should not result in delay in biopsying a clinically suspicious abnormality. "Our facility is accredited by the [employer] Mammography Program."
== END | disposition home or self-care (01) ==
LOC: MAMMO 14:15
PROVIDERS: ATTEND Nurse Practitioner Family
DX: N63.21 Unspecified lump in the left breast, upper outer quadrant (principal)
CPT/HCPCS: 76641; 77065

== ENCOUNTER 2018-10-12 16:26 | Emergency (ER) | payer SELFPAY ==
[~2018-10-12] VITALS: Ht 165.1 cm; Wt 135.0 kg
[~2018-10-12 16:26] MED LIST changes: -ALBU2.5V5 NEB; -AMOX500C PO; -BENZ100C PO; -PRED50TA PO
--- NOTE | 2018-10-12 16:52 | PHYS DOC ---
Past History Past Medical History: Asthma, Other Past Surgical History: , Other Smoking: Less than 1pk/day Alcohol Use: Rarely Drug Use: None Adult General Chief Complaint Chief Complaint: COUGH HPI HPI Patient is a 58 year old female who presents with complaining of cough and congestion for 1 week. Patient complaining of productive cough with clear sputum and pain in her chest and upper abdomen during episodes of cough with nasal congestion and sore throat. Patient denies fever and chills, nausea and vomiting, diarrhea and constipation, headache, neck pain. Review of Systems Review of Systems Constitutional: Denies fever or chills [] Eyes: Denies change in visual acuity, redness, or eye pain [] HENT: Reports nasal congestion and sore throat Respiratory: Reports cough, denies shortness of breath Cardiovascular: No additional information not addressed in HPI [] GI: Denies abdominal pain, nausea, vomiting, bloody stools or diarrhea [] : Denies dysuria or hematuria [] Musculoskeletal: Denies back pain or joint pain [] Integument: Denies rash or skin lesions [] Neurologic: Denies headache, focal weakness or sensory changes [] Endocrine: Denies polyuria or polydipsia [] All other systems were reviewed and found to be within normal limits, except as documented in this note. Allergies Allergies Allergies Coded Allergies Type Severity Reaction Last Updated Verified No Known Drug Allergies 03/17/14 No Physical Exam Physical Exam Constitutional: Well developed, well nourished, mild distress, non-toxic appearance, morbidly obese, coughing during exam. [] HENT: Normocephalic, atraumatic, bilateral external ears normal, oropharynx moist, no oral exudates, nose normal. [] Eyes: PERRLA, EOMI, conjunctiva normal, no discharge. [] Neck: Normal range of motion, no tenderness, supple, no stridor. [] Cardiovascular:Heart rate regular rhythm, no murmur [] Lungs & Thorax: Bilateral breath sounds clear to auscultation [] Abdomen: Bowel sounds normal, soft, no tenderness, no masses, no pulsatile masses. [] Skin: Warm, dry, no erythema, no rash. [] Back: No tenderness, no CVA tenderness. [] Extremities: No tenderness, no cyanosis, no clubbing, ROM intact, no edema. [] Neurologic: Alert and oriented X 3, normal motor function, normal sensory function, no focal deficits noted. [] Psychologic: Affect normal, judgement normal, mood normal. [] Current Patient Data Vital Signs Vital Signs Date Time Temp Pulse Resp B/P (MAP) Pulse Ox O2 Delivery O2 Flow Rate FiO2 10/12/18 16:26 98.3 71 22 100 Room Air EKG EKG [] Radiology/Procedures Radiology/Procedures [address] [address] IMAGING REPORT Signed PATIENT: DEYANIRA COOLEY ACCOUNT: [id number] : 1960 LOCATION: ER AGE: 58 SEX: F EXAM STATUS: REG ER ORD. PHYSICIAN: HARRIS LUA MD REASON: cough and congestion PROCEDURE: CHEST PA & LATERAL CHEST PA LATERAL CLINICAL INDICATION: CONGESTION, COUGH, PAINFUL RESPIRATIONS COMPARISON: 04/12/2018 FINDINGS: Heart is normal in size. Lungs are clear. No pneumothorax or pleural effusion. Visualized bony thorax is within normal limits. IMPRESSION: No acute pulmonary process. Electronically signed by: Gregg Cochran DO (10/12/2018 5:16 PM) [facility] DICTATED AND SIGNED BY: GREGG COCHRAN DO DATE: 10/12/18 7462 CC: HARRIS LUA MD; PCP,NO ~ Course & Med Decision Making Course & Med Decision Making Pertinent Imaging studies reviewed. (See chart for details) Evaluation of patient in ER showed 58-year-old female patient with history of smoking and complaining of cough for one week. Patient had frequent coughing in ER with unremarkable chest x-ray. Patient was treated with prednisone, DuoNeb and Tessalon and felt better. Plan to discharge patient home to diagnose of acute bronchitis and instruction to quit smoking. Dragon Disclaimer Dragon Disclaimer This electronic medical record was generated, in whole or in part, using a voice recognition dictation system. Departure Departure: Impression: Primary Impression: Acute bronchitis Additional Impressions: Tobacco abuse Tobacco abuse counseling Morbid obesity Disposition: HOME, SELF-CARE (at 1728) Condition: IMPROVED Referrals: PCP,NO (PCP) Patient Instructions: Acute Bronchitis, Cough, Adult, Smoking Cessation, Tips For Success Additional Instructions: Drink plenty of liquids Follow-up with your primary care physician in 3-5 days Return to ER if not getting better Scripts Amoxicillin (AMOXICILLIN) 500 Mg Capsule 1 CAP PO TID PRN for infection, #30 CAP Prov: HARRIS LUA MD 10/12/18 Prednisone (PREDNISONE) 50 Mg Tablet 1 TAB PO DAILY for Inflammation, #5 TAB Prov: HARRIS LUA MD 10/12/18 Benzonatate (TESSALON PERLE) 100 Mg Capsule 1 CAP PO TID for cough, #21 CAP Prov: HARRIS LUA MD 10/12/18 Albuterol Sulfate (ALBUTEROL SULFATE NEB SOLN ) 2.5 Mg/3 Ml Vial.neb 2.5 MG NEB Q4-6HRS PRN for SHORTNESS OF BREATH, #25 EACH 0 Refills Prov: HARRIS LUA MD 10/12/18 Problem Qualifiers HARRIS LUA MD Oct 12, 2018 16:52
[2018-10-12] MEDS ORDERED: BENZONATATE 100 MG CAPSULE. PO ONE (17:00)
[2018-10-12] MEDS ORDERED: IPRATRPIUM/ALBUTEROL 0.5/2.5MG 3 ML NEBU. NEB ONE (17:00)
[2018-10-12] MEDS ORDERED: predniSONE 20 MG TABLET PO ONE (17:00)
--- NOTE | 2018-10-12 17:20 | RAD ---
CHEST PA LATERAL CLINICAL INDICATION: CONGESTION, COUGH, PAINFUL RESPIRATIONS COMPARISON: 04/12/2018 FINDINGS: Heart is normal in size. Lungs are clear. No pneumothorax or pleural effusion. Visualized bony thorax is within normal limits. IMPRESSION: No acute pulmonary process. Electronically signed by: Gregg Ware DO (10/12/2018 5:16 PM) [facility]
[2018-10-12] MEDS ORDERED: ALBU2.5V5 NEB (17:32)
[2018-10-12] MEDS ORDERED: PRED50TA PO (17:32)
[2018-10-12] MEDS ORDERED: AMOX500C PO (17:32)
[2018-10-12] MEDS ORDERED: BENZ100C PO (17:32)
[2018-10-12 17:41] VITALS: BP 131/76
== END 2018-10-12 17:40 | disposition home or self-care (01) ==
LOC: ER 16:26
DX: J20.9 Acute bronchitis, unspecified (principal); J45.909 Unspecified asthma, uncomplicated; F17.200 Nicotine dependence, unspecified, uncomplicated; Z71.6 Tobacco abuse counseling; E66.01 Morbid (severe) obesity due to excess calories; Z68.42 Body mass index [BMI] 45.0-49.9, adult
CPT/HCPCS: 71046; 94640; 99283; J7512; J7620

== ENCOUNTER 2020-05-30 10:12 | Emergency (ER) | payer OTHER ==
[~2020-05-30] VITALS: Ht 165.1 cm; Wt 126.9 kg
[~2020-05-30 10:12] MED LIST changes: +ALBU2.5V5 NEB; +AMOX500C PO; +BENZ100C PO; +PRED50TA PO
--- NOTE | 2020-05-30 10:46 | PHYS DOC ---
Past History Past Medical History: Arthritis, Asthma Past Surgical History: , Other Smoking: Less than 1pk/day Alcohol Use: Rarely Drug Use: None General Adult EDM: Chief Complaint: Fall down stairs HPI: HPI: 60-year-old female presents after fall downstairs. 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 She is going down the basement stairs and slipped on the last couple of stairs. She fell onto her right side mostly landed on her elbow and then her knees. She was able to stand up, but her knees are hurting more now. She has some ecchymosis of the elbow. She also has some small bruising on the left forearm, but this is less bothersome. She did not hit her head. She did not lose consciousness. She denies any other complaints at this time. Review of Systems: Review of Systems: Constitutional: Denies fever or chills Eyes: Denies change in visual acuity HENT: Denies nasal congestion or sore throat Respiratory: Denies cough or shortness of breath Cardiovascular: Denies chest pain or edema GI: Denies abdominal pain, nausea, vomiting, bloody stools or diarrhea : Denies dysuria Musculoskeletal: Bilateral knee pain, right elbow pain Integument: Denies rash Neurologic: Denies headache, focal weakness or sensory changes Endocrine: Denies polyuria or polydipsia Lymphatic: Denies swollen glands Psychiatric: Denies depression or anxiety Heart Score: Risk Factors: Risk Factors: DM, Current or recent (<one month) smoker, HTN, HLP, family history of CAD, obesity. Risk Scores: Score 0 - 3: 2.5% MACE over next 6 weeks - Discharge Home Score 4 - 6: 20.3% MACE over next 6 weeks - Admit for Clinical Observation Score 7 - 10: 72.7% MACE over next 6 weeks - Early Invasive Strategies Allergies: Allergies: Allergies Coded Allergies Type Severity Reaction Last Updated Verified No Known Drug Allergies 03/17/14 No Physical Exam: PE: Constitutional: Well developed, morbidly obese, well nourished, no acute distress, non-toxic appearance. [] HENT: Normocephalic, atraumatic, bilateral external ears normal, oropharynx moist, no oral exudates, nose normal. [] Eyes: PERRLA, EOMI, conjunctiva normal, no discharge. [] Neck: Normal range of motion, no tenderness, supple, no stridor. [] Cardiovascular: Heart rate regular rhythm, no murmur [] Lungs & Thorax: Bilateral breath sounds clear to auscultation [] Abdomen: Bowel sounds normal, soft, no tenderness, no masses, no pulsatile masses. [] Skin: Warm, dry, no erythema, no rash. [] Back: No tenderness, no CVA tenderness. [] Extremities: Tenderness and mild ecchymosis over the bilateral knees. Ecchymosis and tenderness of the right elbow. [] Neurologic: Alert and oriented X 3, normal motor function, normal sensory function, no focal deficits noted. [] Psychologic: Affect normal, judgement normal, mood normal. [] EKG: EKG: [] Radiology/Procedures: Radiology/Procedures: [] Impressions: Study: CR KNEE BILAT 3V Indication: Fall. Comparison: None. Findings: Right knee: No displaced fracture or traumatic malalignment. No advanced arthrosis. No large knee joint effusion is identified noting limited assessment for a small effusion given the degree of flexion on the lateral view. Left knee: No displaced fracture or traumatic malalignment. Greater degree of degenerative changes relative to the right knee with moderate medial compartment joint space narrowing and medial and patellofemoral compartment osteophyte formation. Small quadriceps insertion and patellar origin enthesophytes. There may be a small amount of fluid within the suprapatellar recess. Impression: 1. No acute fracture or traumatic malalignment seen at either knee. 2. Moderate medial compartment joint space narrowing on the left and medial/patellofemoral compartment osteophyte formation. Suspected small knee joint effusion on the left. No advanced arthrosis on the right or large effusion. Electronically signed by: ZAKI MARTINEZ MD (05/30/2020 11:17 AM) [id number] DICTATED AND SIGNED BY: ZAKI MARTINEZ MD DATE: 05/30/201116 CC: IGNACIO HILL DO; KIN,NO ~ Study: CR ELBOW RIGHT 3V Indication: Fall. Comparison: None. Findings: No acute fracture or malalignment at the elbow. No elbow joint effusion. Heterogeneous and asymmetrically prominent soft tissues at the dorsal/ulnar aspect of the elbow. Impression: 1. No acute osseous abnormality. 2. Possible contusive injury at the dorsal/ulnar elbow. Electronically signed by: ZAKI MARTINEZ MD (05/30/2020 11:20 AM) [id number] DICTATED AND SIGNED BY: ZAKI MARTINEZ MD DATE: 05/30/20 1120 CC: IGNACIO HILL DO; PCP,NO ~ Course & Med Decision Making: Course & Med Decision Making Pertinent Labs and Imaging studies reviewed. (See chart for details) The patient's x-rays are negative for fractures. She has contusions from the fall. I have advised supportive care such as hydration, rest, ice, and ibup rofen therapy. I will give her a short prescription of Erwinna 5/325 for more significant pain. She is stable for discharge at this time. [] Dragon Disclaimer: Dragon Disclaimer: This electronic medical record was generated, in whole or in part, using a voice recognition dictation system. Departure Departure: Impression: Primary Impression: Fall down stairs Additional Impression: Multiple contusions Disposition: 01 HOME/RESIDENCE PRIOR TO ADM Condition: STABLE Referrals: PCP,NO (PCP) Patient Instructions: Contusion, [id number] Scripts Hydrocodone Bit/Acetaminophen (NORCO 5-325 TABLET) 1 Each Tablet 1 TAB PO PRN Q6HRS PRN for PAIN, #14 TAB 0 Refills Prov: IGNACIO HILL DO 05/30/20 Justification of Admission: Justification of Admission: Justification of Admission Dx: N/A IGNACIO HILL DO May 30, 2020 10:45
--- NOTE | 2020-05-30 11:21 | RAD ---
Study: CR KNEE BILAT 3V Indication: Fall. Comparison: None. Findings: Right knee: No displaced fracture or traumatic malalignment. No advanced arthrosis. No large knee joint effusion is identified noting limited assessment for a small effusion given the degree of flexion on the lateral view. Left knee: No displaced fracture or traumatic malalignment. Greater degree of degenerative changes relative to the right knee with moderate medial compartment joint space narrowing and medial and patellofemoral compartment osteophyte formation. Small quadriceps insertion and patellar origin enthesophytes. There may be a small amount of fluid within the suprapatellar recess. Impression: 1. No acute fracture or traumatic malalignment seen at either knee. 2. Moderate medial compartment joint space narrowing on the left and medial/patellofemoral compartment osteophyte formation. Suspected small knee joint effusion on the left. No advanced arthrosis on the right or large effusion. Electronically signed by: ZAKI MARTINEZ MD (05/30/2020 11:17 AM) [id number]
--- NOTE | 2020-05-30 11:23 | RAD ---
Study: CR ELBOW RIGHT 3V Indication: Fall. Comparison: None. Findings: No acute fracture or malalignment at the elbow. No elbow joint effusion. Heterogeneous and asymmetrically prominent soft tissues at the dorsal/ulnar aspect of the elbow. Impression: 1. No acute osseous abnormality. 2. Possible contusive injury at the dorsal/ulnar elbow. Electronically signed by: ZAKI MARTINEZ MD (05/30/2020 11:20 AM) [id number]
[2020-05-30] MEDS ORDERED: HYDR-3165 PO (12:13)
[2020-05-30 12:30] VITALS: BP 103/58
== END 2020-05-30 12:30 | disposition home or self-care (01) ==
LOC: ER 10:12
DX: S80.02XA Contusion of left knee, initial encounter (principal); S80.01XA Contusion of right knee, initial encounter; S50.01XA Contusion of right elbow, initial encounter; M19.90 Unspecified osteoarthritis, unspecified site; J45.909 Unspecified asthma, uncomplicated; F17.200 Nicotine dependence, unspecified, uncomplicated; W10.8XXA Fall (on) (from) other stairs and steps, initial encounter; Y93.89 Activity, other specified; Y92.89 Other specified places as the place of occurrence of the external cause; Y99.0 Civilian activity done for income or pay
CPT/HCPCS: 73080; 73562; 99284

== ENCOUNTER 2020-12-17 16:42 | Emergency (ER) | payer OTHER ==
[~2020-12-17] VITALS: Ht 165.1 cm; Wt 133.7 kg
[2020-12-17] MEDS ORDERED: METHOCARBAMOL 500 MG TABLET PO PRN (17:30)
--- NOTE | 2020-12-17 17:53 | RAD ---
XR BILATERAL HIP (WITH OR WITHOUT PELVIS) LEFT 2 VIEWS Clinical Indication: Reason: left hip pain / Comparison: None. Findings: There is no acute pelvic fracture. The sacroiliac joints are symmetric. There is degenerative spondyl osis of the visualized lumbar spine. Right hip joint is intact. There is mild arthropathy of the hips for patient age. There is no acute fracture or dislocation of the left hip. IMPRESSION: No acute fracture or dislocation. Electronically signed by: Michael Peña MD (12/17/2020 5:50 PM) [facility]
[2020-12-17] MEDS ORDERED: IOHEXOL 300 MG/ML 75 ML VIAL. IV ONE (18:00)
--- NOTE | 2020-12-17 18:14 | PHYS DOC ---
Past History Past Medical History: Arthritis, Asthma, Depression, Hypertension, Other Additional Past Medical Histor: chronic back pain (ALESSIA GALLEGOS DO) Past Surgical History: , Other Additional Past Surgical Histo: left ovarian cyst removed (ALESSIA GALLEGOS DO) Smoking: Less than 1pk/day Alcohol Use: Rarely Drug Use: None (ALESSIA GALLEGOS DO) General Adult EDM: Chief Complaint: HIP PAIN HPI: HPI: Patient is a [age] year old [sex] who presents with [] (ALESSIA GALLEGOS DO) Review of Systems: Review of Systems: Constitutional: Denies fever or chills Eyes: Denies change in visual acuity HENT: Denies nasal congestion or sore throat Respiratory: Denies cough or shortness of breath Cardiovascular: Denies chest pain or edema GI: Denies abdominal pain, nausea, vomiting, bloody stools or diarrhea : Denies dysuria Musculoskeletal: Denies back pain or joint pain Integument: Denies rash Neurologic: Denies headache, focal weakness or sensory changes Endocrine: Denies polyuria or polydipsia Lymphatic: Denies swollen glands Psychiatric: Denies depression or anxiety (ALESSIA GALLEGOS DO) Current Medications: Current Meds: Current Medications Medications (Trade) Dose Ordered Sig/Alexander Start Time Stop Time Status Last Admin Dose Admin Fentanyl Citrate (Fentanyl 2ml Vial) 50 mcg 1X ONCE 12/17/20 17:45 12/17/20 17:57 DC 12/17/20 18:09 50 MCG Iohexol (Omnipaque 300 Mg/ml) 75 ml 1X ONCE 12/17/20 18:00 12/17/20 18:01 DC 12/17/20 17:59 75 ML Methocarbamol (Robaxin) 1,000 mg 1X PRN 12/17/20 17:30 12/17/20 18:10 1,000 MG (ALESSIA GALLEGOS DO) Allergies: Allergies: Allergies Coded Allergies Type Severity Reaction Last Updated Verified No Known Drug Allergies 05/30/20 No (ALESSIA GALLEGOS DO) Physical Exam: PE: Constitutional: Well developed, well nourished, no acute distress, non-toxic appearance. [] HENT: Normocephalic, atraumatic, bilateral external ears normal, oropharynx moist, no oral exudates, nose normal. [] Eyes: PERRLA, EOMI, conjunctiva normal, no discharge. [] Neck: Normal range of motion, no tenderness, supple, no stridor. [] Cardiovascular:Heart rate regular rhythm, no murmur [] Lungs & Thorax: Bilateral breath sounds clear to auscultation [] Abdomen: Bowel sounds normal, soft, no tenderness, no masses, no pulsatile masses. [] Skin: Warm, dry, no erythema, no rash. [] Back: No tenderness, no CVA tenderness. [] Extremities: No tenderness, no cyanosis, no clubbing, ROM intact, no edema. [] Neurologic: Alert and oriented X 3, normal motor function, normal sensory function, no focal deficits noted. [] Psychologic: Affect normal, judgement normal, mood normal. [] (ALESSIA GALLEGOS DO) Current Patient Data: Vital Signs: Vital Signs Date Time Temp Pulse Resp B/P (MAP) Pulse Ox O2 Delivery O2 Flow Rate FiO2 12/17/20 16:42 98.4 78 16 137/58 (84) 96 Room Air (ALESSIA GALLEGOS DO) EKG: EKG: [] (ALESSIA GALLEGOS DO) Radiology/Procedures: Radiology/Procedures: [] (ALESSIA GALLEGOS DO) Heart Score: Risk Factors: Risk Factors: DM, Current or recent (<one month) smoker, HTN, HLP, family history of CAD, obesity. Risk Scores: Score 0 - 3: 2.5% MACE over next 6 weeks - Discharge Home Score 4 - 6: 20.3% MACE over next 6 weeks - Admit for Clinical Observation Score 7 - 10: 72.7% MACE over next 6 weeks - Early Invasive Strategies (ALESSIA GALLEGOS DO) Course & Med Decision Making: Course & Med Decision Making Pertinent Labs and Imaging studies reviewed. (See chart for details) [] (ALESSIA GALLEGOS DO) Course & Med Decision Making Patient is a 60-year-old female who presented with hip pain. Vital signs not concerning. Laboratory analysis not concerning. Imaging with no acute abdominal or pelvic pathology, multilevel lumbar spondylosis and unchanged exophytic calcified lesion around femoral neck. No new or acute findings. Discussed all findings with patient and recommended follow-up first thing in the morning with her primary care physician to discuss chronic pain management. Advised come back to the ED with new or concerning symptoms. Patient grateful, verbalized understanding and agreed with plan of discharge. (KENNEDY CHIRINOS MD) Dragon Disclaimer: Dragon Disclaimer: This electronic medical record was generated, in whole or in part, using a voice recognition dictation system. (ALESSIA GALLEGOS DO) Departure Departure: Impression: Primary Impression: Hip pain Disposition: 01 DC HOME SELF CARE/HOMELESS Condition: GOOD Referrals: PCP,NO (PCP) Patient Instructions: Hip Pain Additional Instructions: Please read the attached information. Please continue to use [id number] pain medicines at home as you have been. You can use your hydrocodone as needed for breakthrough pain but please be careful with these, do not drive, go to work or take with alcohol. Please call your primary care physician first thing in the morning to discuss your ED visit and set up a follow-up as soon as possible to discuss pain management. Please come back to the ED with new or concerning symptoms. ALESSIA GALLEGOS DO Dec 17, 2020 18:14 KENNEDY CHIRINOS MD Dec 17, 2020 19:14
[2020-12-17 18:21] LABS: BARBITURATES NEG (NEG); BENZODIAZEPINES NEG (NEG); CANNABINOIDS NEG (NEG); COCAINE NEG (NEG); METHADONE NEG (NEG); OPIATES NEG (NEG); PHENCYCLIDINE NEG (NEG)
[2020-12-17 18:25] LABS: AMPHETAMINE/METHAMPHETAMINE NEG (NEG)
--- NOTE | 2020-12-17 18:32 | RAD ---
CT ABDOMEN+PELVIS W History: Reason: left buttock pain to leg / Spl. Instructions: / History: Technique: After the administration of intravenous contrast, CT imaging was performed of the abdomen and pelvis. Multiplanar images are reviewed. Exposure: One or more of the following individualized dose reduction techniques were utilized for thi s examination: 1. Automated exposure control 2. Adjustment of the mA and/or kV according to patient size 3. Use of iterative reconstruction technique. Comparison: September 07, 2018 Findings: Lower chest: No consolidation or pleural effusion. Abdomen and pelvis: The liver, spleen, adrenal glands, and pancreas are unremarkable. Unchanged incre ased attenuation within the gallbladder, may represent sludge. No gallbladder wall thickening. Minima l intrahepatic biliary ductal dilatation, unchanged. Common bile duct is normal in caliber. Left renal cyst. Lobulated appearance the kidneys. No hydronephrosis. No renal calculi. Decompressed urinary bladder. Normal appendix. No evidence of bowel obstruction. No pathologic lymphadenopathy. No ascites. Unchang ed nonspecific anterior calcification. Bones: Opacification adjacent to the right posterior femoral neck, may represent calcified intra-millicent cular loose body or exophytic calcified lesion, unchanged compared to 2018. Multilevel lumbar spondyl osis with leftward curvature. L2 vertebral body hemangiomas. Impression: 1. No acute abdominal or pelvic pathology. 2. Unchanged increased attenuation within the gallbladder, may represent sludge. 3. Minimal intrahepatic biliary ductal dilatation, unchanged. 4. Multilevel lumbar spondylosis with leftward curvature. Electronically signed by: Malik Mcmanus DO (12/17/2020 6:30 PM) [facility]
[2020-12-17 18:35] LABS: BASO % 0 % (0-3); EOS # 0.1 x10^3/uL (0.0-0.7); EOS % 2 % (0-3); HEMATOCRIT 41.2 % (36.0-47.0); HEMOGLOBIN 13.8 g/dL (12.0-15.5); LYMPH # 1.4 x10^3/uL (1.0-4.8); LYMPH % 21 % (24-48); MEAN CORPUSCULAR HEMOGLOBIN 29 pg (25-35); MEAN CORPUSCULAR HGB CONC 33 g/dL (31-37); MEAN CORPUSCULAR VOLUME 86 fL (79-100); MONO # 0.5 x10^3/uL (0.0-1.1); MONO % 7 % (0-9); NEUT # 4.4 x10^3uL (1.8-7.7); NEUT % 69 % (31-73); PLATELET COUNT 231 x10^3/uL (140-400); RED BLOOD COUNT 4.77 x10^6/uL (3.50-5.40); RED CELL DISTRIBUTION WIDTH 13.5 % (11.5-14.5); WHITE BLOOD COUNT 6.4 x10^3/uL (4.0-11.0)
[2020-12-17 18:39] LABS: BACTERIA,URINE FEW /HPF (0-FEW); BILIRUBIN,URINE NEG (NEG); CLARITY,URINE CLEAR; COLOR,URINE AMBER; GLUCOSE,URINE NEG (NEG); NITRITE,URINE NEG (NEG); SQUAMOUS EPITHELIAL CELL,UR MOD /LPF
[2020-12-17 18:52] LABS: CREATININE 1.1 mg/dL (0.6-1.0); GFR 50.7; POTASSIUM 3.8 mmol/L (3.5-5.1)
[2020-12-17 18:58] LABS: ALBUMIN 3.7 g/dL (3.4-5.0); ALBUMIN/GLOBULIN RATIO 0.9 (1.0-1.7); TOTAL BILIRUBIN 0.4 mg/dL (0.2-1.0); TOTAL PROTEIN 7.8 g/dL (6.4-8.2)
[2020-12-17 19:20] VITALS: BP 125/67
== END 2020-12-17 19:20 | disposition home or self-care (01) ==
LOC: ER 16:42
DX: M25.552 Pain in left hip (principal); M19.90 Unspecified osteoarthritis, unspecified site; J45.909 Unspecified asthma, uncomplicated; F32.9 Major depressive disorder, single episode, unspecified; I10 Essential (primary) hypertension; F17.200 Nicotine dependence, unspecified, uncomplicated; Z98.890 Other specified postprocedural states
CPT/HCPCS: 36415; 73502; 74177; 80053; 80307; 81001; 85025; 87086; 96374; 99285; J3010; Q9967

== ENCOUNTER 2021-02-03 01:38 | Emergency (ER) | payer OTHER ==
[~2021-02-03] VITALS: Ht 165.1 cm; Wt 132.4 kg
--- NOTE | 2021-02-03 02:07 | PHYS DOC ---
Past History Past Medical History: Anxiety, Arthritis, Asthma, Depression, Hypertension, Other Additional Past Medical Histor: chronic back pain Past Surgical History: , Other Additional Past Surgical Histo: left ovarian cyst removed Smoking: Less than 1pk/day Alcohol Use: Rarely Drug Use: None General Adult HPI: HPI: "... I fell .. I was getting out .. of bed... ".. I was trying to get to the bathroom real quick.. and I tripped and fell... my head hit the dresser drawers..." " It did not knock me out.. but did see stars" Patient is a 60 year old Female who presents with of fall when attempting to get out of the bed.. Pt. incurred a two small lacerations to posterior scalp with hematoma and contusions Rt arm.. Patient denies any other injuries. Has obvious ecchymosis on right elbow and upper arm. Distal neurovascular is intact. Patient is right-hand dominant. Capillary refill in fingers is equal to left hand. Patient denies any recent travel or sick ill contacts. Patient denies any history immunosuppression. Patient is not completely sure of her last tetanus. Review ED record shows patient's had multiple visits for falls. Patient does live by herself. Patient normally follows with a primary care through home health care group. Patient does continue to smoke tobacco 1 pack/day Review of Systems: Review of Systems: Constitutional: Denies fever or chills Eyes: Denies change in visual acuity HENT: Complains of head laceration and contusion Respiratory: Denies cough or shortness of breath Cardiovascular: Denies chest pain or edema GI: Denies abdominal pain, nausea, vomiting, bloody stools or diarrhea : Denies dysuria Musculoskeletal: Complains of right elbow and upper arm pain Integument: Denies rash Neurologic: Denies headache, focal weakness or sensory changes Endocrine: Denies polyuria or polydipsia Lymphatic: Denies swollen glands Psychiatric: Denies depression or anxiety Family History: Family History: Noncontributory to presentation Current Medications: Current Meds: See nursing for home meds Allergies: Allergies: Allergies Coded Allergies Type Severity Reaction Last Updated Verified No Known Drug Allergies 05/30/20 No Physical Exam: PE: Constitutional: Moderate acute distress, non-toxic appearance. [] HENT: Normocephalic, 4 x 6 hematoma posterior right scalp, with 1 cm laceration and a additional half centimeter laceration puncture-like lacerations,, bilateral external ears normal, oropharynx moist, no oral exudates, nose normal. [] TMs clear Eyes: PERRLA, EOMI, conjunctiva normal, no discharge. [] Neck: Limited range of motion, upper and neck tenderness, supple, no stridor. [] Cardiovascular:Heart rate regular rhythm, no murmur [] Lungs & Thorax: Bilateral breath sounds clear to auscultation [] Abdomen: Bowel sounds normal, soft, no tenderness, no masses, no pulsatile masses. Morbid obesity. Old surgery scars. Skin: Warm, dry, no erythema, no rash. Poor turgor. Multiple bruises right elb ow and upper arm. Sunburn on arms Back: No tenderness, no CVA tenderness. [] Extremities: No tenderness, no cyanosis, no clubbing, ROM intact, ankle edema. Arthritic changes Neurologic: Alert and oriented X 3, patient moves all extremities on request, does have distal sensory,, no focal deficits noted. []Pt. ambulatory. DTR+2 at patella and brachial. Psychologic: Affect anxious, judgement normal, mood normal. [] EKG: EKG: My interpretation EKG shows a sinus rhythm at 66 bpm the rhythm is irregular but there is what appears to be a P wave before each QRS. There is some nonspecific septal changes. But no findings acute STEMI of contralateral changes. [] Radiology/Procedures: Radiology/Procedures: [place] [address] IMAGING REPORT Signed PATIENT: DEYANIRA COOLEY ACCOUNT: [id number] : 1960 LOCATION: ER AGE: 60 SEX: F EXAM STATUS: REG ER ORD. PHYSICIAN: LOU MARIE MD REASON: fall-pain PROCEDURE: CHEST PA & LATERAL XR CHEST 2V History: Reason: fall-pain / Spl. Instructions: / History: Comparison: October 12, 2018 Findings: No consolidation or pleural effusion. Normal heart size. No pneumothorax. Impression: 1. No acute cardiopulmonary process. Electronically signed by: Malik Shirley DO (02/03/2021 4:20 AM) [facility] DICTATED AND SIGNED BY: MALIK SHIRLEY DO DATE: 02/03/21418 CC: LOU MARIE MD; NON,STAFF ~[facility] [address] [place] [id number] IMAGING REPORT Signed PATIENT: DEYANIRA COOLEY ACCOUNT: [id number] : 1960 LOCATION: ER AGE: 60 SEX: F EXAM STATUS: REG ER ORD. PHYSICIAN: LOU MARIE MD REASON: fall-pain PROCEDURE: ELBOW RIGHT 3V XR HUMERUS_RT 2 VIEWS, XR ELBOW COMPLETE_RIGHT 3+ VIEWS History: Reason: fall-pain / Spl. Instructions: / History: Technique: 3 views of the right elbow and 2 views of the right humerus Comparison: None. Findings: Right humerus: Normal alignment. No fracture. Right elbow: Normal alignment. No fracture. No significant elbow joint effusion. Impression: 1. No acute osseous abnormality. Electronically signed by: Malik Shirley DO (02/03/2021 4:21 AM) [facility] DICTATED AND SIGNED BY: MALIK SHIRLEY DO DATE: 02/03/21419 CC: LOU MARIE MD; NON,STAFF ~[facility] [address] [address] IMAGING REPORT Signed PATIENT: DEYANIRA COOLEY ACCOUNT: [id number] : 1960 LOCATION: ER AGE: 60 SEX: F EXAM STATUS: REG ER ORD. PHYSICIAN: LOU MARIE MD REASON: Head injury PROCEDURE: CT HEAD AND CERVICAL SPINE WO CT HEAD AND C-SPINE WO History: Reason: Head injury / Spl. Instructions: / History: . Pain Comparison: September 07, 2018. Technique: Noncontrast CT imaging was performed of the head and cervical spine. Coronal and sagittal reconstructions were performed. Exposure: One or more of the following individualized dose reduction techniques were utilized for this examination: 1. Automated exposure control 2. Adjustment of the mA and/or kV according to patient size 3. Use of iterative reconstruction technique. Findings: Head CT: No intracranial hemorrhage. No mass effect. No hydrocephalus. Right posterior scalp soft tissue swelling and laceration with subcutaneous gas. Mild brain parenchymal volume loss. Imaged orbits are unremarkable. Imaged paranasal sinuses and mastoid air cells are clear. No acute calvarial fracture. 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 Grade 1 anterolisthesis C4 on C5. Normal vertebral body height. No acute fracture. Multilevel degenerative disc changes most prominent C5-C6 and C6-C7. Facet arthropathy. No high-grade canal narrowing. Multilevel neuroforaminal narrowing. Soft tissues unremarkable. Impression: Head CT: 1. No acute intracranial abnormality. 2. Right posterior scalp soft tissue swelling and injury. Cervical spine CT: 1. No acute fracture or subluxation of the cervical spine. 2. Multilevel cervical spondylosis. Electronically signed by: Malik Shirley DO (02/03/2021 4:17 AM) [facility] DICTATED AND SIGNED BY: MALIK SHIRLEY DO DATE: 02/03/21409 CC: LOU MARIE MD; NON,STAFF ~[facility] 0 [][place] [address] IMAGING REPORT Signed PATIENT: DEYANIRA COOLEY ACCOUNT: [id number] : 1960 LOCATION: ER AGE: 60 SEX: F EXAM STATUS: REG ER ORD. PHYSICIAN: LOU MARIE MD REASON: fall-pain PROCEDURE: HUMERUS RIGHT XR HUMERUS_RT 2 VIEWS, XR ELBOW COMPLETE_RIGHT 3+ VIEWS History: Reason: fall-pain / Spl. Instructions: / History: Technique: 3 views of the right elbow and 2 views of the right humerus Comparison: None. Findings: Right humerus: Normal alignment. No fracture. Right elbow: Normal alignment. No fracture. No significant elbow joint effusion. Impression: 1. No acute osseous abnormality. Electronically signed by: Malik Shirley DO (02/03/2021 4:21 AM) [facility] DICTATED AND SIGNED BY: MALIK SHIRLEY DO DATE: 02/03/21419 CC: LOU MARIE MD; NON,STAFF ~[facility] 0 Heart Score: C/O Chest Pain: N/A HEART Score for Chest Pain: HEART Score for Chest Pain Response (Comments) Value History Slighlty/Non-Suspicious 0 ECG Nonspecific Repolarizatio 1 Age >45 - < 65 1 Risk Factors 1 or 2 Risk Factors 1 Troponin < Normal Limit 0 Total 3 Risk Factors: Risk Factors: DM, Current or recent (<one month) smoker, HTN, HLP, family history of CAD, obesity. Risk Scores: Score 0 - 3: 2.5% MACE over next 6 weeks - Discharge Home Score 4 - 6: 20.3% MACE over next 6 weeks - Admit for Clinical Observation Score 7 - 10: 72.7% MACE over next 6 weeks - Early Invasive Strategies Course & Med Decision Making: Course & Med Decision Making Pertinent Labs and Imaging studies reviewed. (See chart for details) Procedure note laceration repair-laceration and hair cleaned extensively with hydroperoxide. Did locate a hematoma approximate 4 x 6 cm posterior right scalp with two puncture-like lacerations to scalp. Does have some active bleeding. Lacerations are 1 cm and 1/2 cm. These were irrigated extensively with normal saline. And cleaned with peroxide. Closed lacerations with two daria to the 1 cm laceration one staple to the half centimeter laceration. Patient keep these areas clean and dry. [place] out in 10 days. Apply Polysporin four times a day. Do not allow direct water or shower water spray directly on wound. Monitor closely for infection. Follow-up primary care. Patient tetanus was updated. Pt. encourage to use a walker . Patient return for reexam if she vomits more than twice after discharge home. Patient return if any concerns. Impression: 1. Trip and fall 2. Laceration posterior scalp 0.5 and 1 cm 3 Scalp hematoma 4 x 6 cm 4. Contusions right arm [] Dragon Disclaimer: Dragon Disclaimer: This electronic medical record was generated, in whole or in part, using a voice recognition dictation system. Departure Departure: Referrals: PCP,NO (PCP) Tess Disclaimer This chart was dictated in whole or in part using Voice Recognition software in a busy, high-work load, and often noisy Emergency Department environment. It may contain unintended and wholly unrecognized errors or omissions. LOU MARIE MD Feb 03, 2021 02:07
[2021-02-03] MEDS ORDERED: ALBU2.5V8 INH (02:14)
[2021-02-03] MEDS ORDERED: DIPH,PERTUSS(ACELL),TET VAC/PF 0.5 ML SYRINGE. VAX IM ONE (02:30)
[2021-02-03] MEDS ORDERED: IV RINGERS SOLUTION,LACTATED 1,000 ML IV ONE (02:45)
[2021-02-03 03:50] LABS: BACTERIA,URINE FEW /HPF (0-FEW); BILIRUBIN,URINE NEG (NEG); CLARITY,URINE HAZY; COLOR,URINE YELLOW; GLUCOSE,URINE NEG (NEG); NITRITE,URINE NEG (NEG); RBC,URINE 0 /HPF (0-2); SQUAMOUS EPITHELIAL CELL,UR FEW /LPF; UROBILINOGEN,URINE 0.2 mg/dL (0.2 mg/dL)
--- NOTE | 2021-02-03 04:20 | RAD ---
CT HEAD AND C-SPINE WO History: Reason: Head injury / Spl. Instructions: / History: . Pain Comparison: September 07, 2018. Technique: Noncontrast CT imaging was performed of the head and cervical spine. Coronal and sagittal reconstructions were performed. Exposure: One or more of the following individualized dose reduction techniques were utilized for thi s examination: 1. Automated exposure control 2. Adjustment of the mA and/or kV according to patient size 3. Use of iterative reconstruction technique. Findings: Head CT: No intracranial hemorrhage. No mass effect. No hydrocephalus. Right posterior scalp soft tissue swelling and laceration with subcutaneous gas. Mild brain parenchymal volume loss. Imaged orbits are unremarkable. Imaged paranasal sinuses and mastoid air cells are clear. No acute ca lvarial fracture. 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 Grade 1 anterolisthesis C4 on C5. [place] l vertebral body height. No acute fracture. Multilevel degenerative disc changes most prominent C5-C6 and C6-C7. Facet arthropathy. No high-grade canal narrowing. Multilevel neuroforaminal narrowing. Soft tissues unremarkable. Impression: Head CT: 1. No acute intracranial abnormality. 2. Right posterior scalp soft tissue swelling and injury. Cervical spine CT: 1. No acute fracture or subluxation of the cervical spine. 2. Multilevel cervical spondylosis. Electronically signed by: Malik Mcmanus DO (02/03/2021 4:17 AM) [facility]
--- NOTE | 2021-02-03 04:22 | RAD ---
XR CHEST 2V History: Reason: fall-pain / Spl. Instructions: / History: Comparison: October 12, 2018 Findings: No consolidation or pleural effusion. Normal heart size. No pneumothorax. Impression: 1. No acute cardiopulmonary process. Electronically signed by: Malik Mcmanus DO (02/03/2021 4:20 AM) [facility]
--- NOTE | 2021-02-03 04:24 | RAD ---
XR HUMERUS_RT 2 VIEWS, XR ELBOW COMPLETE_RIGHT 3+ VIEWS History: Reason: fall-pain / Spl. Instructions: / History: Technique: 3 views of the right elbow and 2 views of the right humerus Comparison: None. Findings: Right humerus: Normal alignment. No fracture. Right elbow: Normal alignment. No fracture. No significant elbow joint effusion. Impression: 1. No acute osseous abnormality. Electronically signed by: Malik Mcmanus DO (02/03/2021 4:21 AM) [facility]
[2021-02-03 04:33] LABS: BASO % 0 % (0-3); EOS # 0.1 x10^3/uL (0.0-0.7); EOS % 2 % (0-3); HEMATOCRIT 36.5 % (36.0-47.0); HEMOGLOBIN 12.1 g/dL (12.0-15.5); LYMPH % 14 % (24-48); MEAN CORPUSCULAR HEMOGLOBIN 29 pg (25-35); MEAN CORPUSCULAR HGB CONC 33 g/dL (31-37); MEAN CORPUSCULAR VOLUME 87 fL (79-100); MONO # 0.5 x10^3/uL (0.0-1.1); MONO % 7 % (0-9); NEUT # 5.5 x10^3uL (1.8-7.7); NEUT % 78 % (31-73); PLATELET COUNT 182 x10^3/uL (140-400); RED BLOOD COUNT 4.19 x10^6/uL (3.50-5.40); RED CELL DISTRIBUTION WIDTH 13.8 % (11.5-14.5)
[2021-02-03 04:44] LABS: CALCIUM 8.7 mg/dL (8.5-10.1); CREATININE 0.8 mg/dL (0.6-1.0); GFR 73.2; POTASSIUM 3.9 mmol/L (3.5-5.1)
[2021-02-03 04:50] LABS: ALBUMIN 3.3 g/dL (3.4-5.0); DIRECT BILIRUBIN 0.1 mg/dL (0.0-0.2); TOTAL BILIRUBIN 0.4 mg/dL (0.2-1.0); TOTAL PROTEIN 6.6 g/dL (6.4-8.2)
[2021-02-03 05:30] VITALS: BP 112/58
--- NOTE | 2021-02-03 06:27 | EKG ---
[address] [address] Test Date: 2021-02-03 Test Time: 03:33:00 Pat Name: DEYANIRA COOLEY Department: Room: Gender: F [employer]: : 1960 Requested By: LOU MARIE Order Number: [id number] Reading MD: Measurements Intervals [place] Rate: 66 P: [place]: QRS: 18 QRSD: 84 T: 60 QT: 376 QTc: 396 Interpretive Statements IRREGULAR RHYTHM, NO P-WAVE FOUND QRS(T) CONTOUR ABNORMALITY CONSISTENT WITH SEPTAL INFARCT AGE UNDETERMINED ABNORMAL ECG RI6.02 No previous ECG available for comparison
== END 2021-02-03 05:40 | disposition home or self-care (01) ==
LOC: ER 01:38
DX: S01.01XA Laceration without foreign body of scalp, initial encounter (principal); S40.021A Contusion of right upper arm, initial encounter; S50.01XA Contusion of right elbow, initial encounter; L55.9 Sunburn, unspecified; F41.9 Anxiety disorder, unspecified; M19.90 Unspecified osteoarthritis, unspecified site; J45.909 Unspecified asthma, uncomplicated; F32.9 Major depressive disorder, single episode, unspecified; I10 Essential (primary) hypertension; G89.29 Other chronic pain; F17.200 Nicotine dependence, unspecified, uncomplicated; W01.0XXA Fall on same level from slipping, tripping and stumbling without subsequent striking against object, initial encounter; Y93.89 Activity, other specified; Y92.89 Other specified places as the place of occurrence of the external cause; Y99.8 Other external cause status
CPT/HCPCS: 12001; 36415; 70450; 71046; 72125; 73060; 73080; 80048; 80076; 81001; 82550; 84484; 85025; 85610; 85730; 87077; 87086; 87186; 90471; 90715; 93005; 96360; 96361; 99285; G0480; J7120